=== PATIENT | female | born 1965 | race Caucasian/White ===

== ENCOUNTER 2018-10-07 12:02 | Emergency (ER) | payer SELFPAY ==
[2018-10-07] MEDS ORDERED: IBUPROFEN 400 MG TABLET PO ONE (12:55)
--- NOTE | 2018-10-07 12:55 | ED Physician Documentation ---
General Adult - HISTORIAN Historian: patient - HPI Stated Complaint: Rash/Headache Chief Complaint: Headache Onset: days ago (3) Timing: still present Severity: mild Further Comments: yes (Reports she stopped her b/p med and she notes a headache) - ROS CONST: other (she has a chronic rash and she has a derm appt in a few weeks ) CVS/RESP: none MS/SKIN/LYMPH: rash (chronic ) - PAST HX Past History: hypertension Allergies/Adverse Reactions: Allergies Allergy/AdvReac Type Severity Reaction Status Date / Time No Known Allergies Allergy Verified 10/07/18 12:34 Home Medications: Ambulatory Orders Medication Instructions Recorded NK 10/07/18 - SOCIAL HX Smoking History: cigarettes Alcohol Use: none Drug Use: none - FAMILY HX Family History: No - VITAL SIGNS Vital Signs: Vital Signs Temp Pulse Resp BP Pulse Ox 97.5 F L 76 15 202/124 97 10/07/18 12:15 10/07/18 12:15 10/07/18 12:15 10/07/18 12:15 10/07/18 12:15 - REVIEWED ASSESSMENTS Nursing Assessment Reviewed: Yes Vitals Reviewed: Yes Progress - Progress Progress: 1324: states pain is much better - DG 1355: she was sleeping in the bed. States head is better. She is aware of plan and she is agreeable DG General Adult Physical Exam - PHYSICAL EXAM GENERAL APPEARANCE: no distress EENT: eye inspection normal, ENT inspection normal, no signs of dehydration NECK: normal inspection RESPIRATORY: no resp distress, chest non-tender, breath sounds normal CVS: reg rate & rhythm, heart sounds normal ABDOMEN: soft, normal bowel sounds, no distension, non-tender SKIN: warm/dry, other (crusting areas on bilateral arms and two bite areas on back of neck ) EXTREMITIES: non-tender, normal range of motion, no evidence of injury, no edema NEURO: oriented X3 Discharge Clincal Impression: Hypertension Qualifiers: Hypertension type: unspecified Qualified Code(s): I10 - Essential (primary) hypertension Referrals: Primary Doctor,No [Primary Care Provider] - 2 Days Comments: 1. Amlodipine 5mg take 1 by mouth daily 2. Follow up with PCP in 2 days 3. DO NOT SMOKE 4. Keep appt with diagnostic sales specialist 5. Return to ER for any increasing concerns Condition: Stable Disposition: 01 HOME, SELF-CARE Decision to Admit: NO Date of Decison to Admit: 10/07/18 Decision Time: 13:55
[2018-10-07] MEDS ORDERED: cloNIDine HCL 0.1 MG TABLET PO ONE ×2 (12:56→13:31)
[2018-10-07] MEDS ORDERED: CYCLOBENZAPRINE HCL 10 MG TABLET PO ONE (13:32)
[2018-10-07 14:20] VITALS: BP 177/97
== END 2018-10-07 14:12 | disposition home or self-care (01) ==
LOC: ED 12:02
DX: I10 Essential (primary) hypertension (principal); R21 Rash and other nonspecific skin eruption; Z72.0 Tobacco use
CPT/HCPCS: 99283; S1016